=== PATIENT | female | born 1965 | race Caucasian/White ===

== ENCOUNTER 2020-02-11 09:44 | Emergency (ER) | payer OTHER ==
[2020-02-11] MEDS ORDERED: COLCHICINE 0.6 MG TAB PO ONE (10:05)
--- NOTE | 2020-02-11 10:33 | ED.PDOC ---
History of Present Illness - General Chief Complaint: General Stated Complaint: "lung pain" and pain in feet Time Seen by Provider: 02/11/20 09:47 Source: patient Exam Limitations: no limitations - History of Present Illness Initial Comments: The patient is a 54-year-old female presented to the emergency room secondary to a weeks worth of symptoms of sharp parasternal pain with movement, laying on her side and taking deep breaths along with the same duration of symptoms of pain to the medial proximal aspect of her left foot and pain to the distal plantar aspect of her right foot. All areas are exquisitely tender to very light palpation. There is no erythema. No skin changes. No increased warmth. This is a very convincing presentation for an acute gout flare. Patient denies any heavy alcohol use. No increased meat intake. No obvious increased dehydration. No diuretic use. No known metabolic disorders. This would be her first flare. No shortness of breath. No significant cough. No nausea vomiting or diarrhea. 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 I see no evidence of any real symptoms of coronavirus. Timing/Duration: 1 week Severity: severe Worsening Factors: movement Associated Symptoms: chest pain Allergies/Adverse Reactions: Allergies Acetaminophen [From Vicodin] Allergy (Verified 02/11/20 10:08) Hydrocodone [From Vicodin] Allergy (Verified 02/11/20 10:08) Home Medications: Ambulatory Orders Colchicine 0.6 mg PO Q8HR #3 tab 02/11/20 Cranberry (Vaccinium Macrocarp [Cranberry Concentrate] 500 mg PO DAILY 02/11/20 Pantoprazole Sodium 40 mg PO DAILY 02/11/20 predniSONE [Prednisone] 20 mg PO DAILY #4 tab 02/11/20 Review of Systems - Review of Systems Constitutional: States: no symptoms reported EENTM: States: no symptoms reported. Denies: nose congestion, throat pain Respiratory: Denies: cough, short of breath, wheezing Cardiology: States: chest pain Gastrointestinal/Abdominal: States: no symptoms reported Genitourinary: States: no symptoms reported Musculoskeletal: States: see HPI Skin: States: no symptoms reported Neurological: States: anxiety Endocrine: States: no symptoms reported All other Systems: No Change from Baseline Past Medical History (General) - Patient Medical History Hx Seizures: No Hx Stroke: No Hx Cardiac Disorders: No Hx Congestive Heart Failure: No Hx Hypertension: No Hx Thyroid Disease: No - Vaccination History Hx Influenza Vaccination: No Hx Pneumococcal Vaccination: No Family Medical History - Family History Mother Family History: No Known Physical Exam - Physical Exam General Appearance: Alert, Anxious, No apparent distress Eye Exam: bilateral normal Ears, Nose, Throat: hearing grossly normal, normal ENT inspection Neck: full range of motion, supple Respiratory: lungs clear, normal breath sounds, no respiratory distress, no accessory muscle use, other - See history of present illness Cardiovascular/Chest: normal peripheral pulses, regular rate, rhythm, no edema Peripheral Pulses: radial,right: 2+, radial,left: 2+ Gastrointestinal/Abdominal: non tender, soft Rectal Exam: deferred Back Exam: no CVA tenderness, no vertebral tenderness Extremity: normal range of motion, no pedal edema, no calf tenderness, normal capillary refill, other - Tenderness as described above 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 Symptoms are highly consistent. Chest x- ray was essentially normal. Urinalysis was normal given her history of recurrent urinary tract infections. The patient was given a dose of colchicine here. She is going to be written for a couple of days of oral colchicine as well as 4 days of oral prednisone. She needs to increase her fluid intake. She can take an cpss-lqi-[id number] anti-inflammatory such as Motrin or Aleve. She is to take measures to keep the areas warm to prevent crystal precipitation. She needs to avoid alcohol or high levels of red meat intake. She needs to avoid any diuretics. If the patient is not significantly improving over the next 3 to 4 days then a reevaluation with her primary care doctor for additional testing might be warranted. ER warnings are given. [email or web address] [id number] - Results/Orders Results/Orders: Laboratory Tests 02/11/20 10:10 Urine Color Yellow Urine Appearance Clear Urine pH 6.0 Ur Specific Cunningham 1.010 Urine Protein Negative Urine Glucose (UA) Negative Urine Ketones Negative Urine Blood Negative Urine Nitrite Negative Urine Bilirubin Negative Urine Urobilinogen 0.2 Ur Leukocyte Esterase Negative Urine RBC 0 Urine WBC 0-1 Ur Epithelial Cells 1-3 Urine Bacteria 0 Chest x-ray shows no obvious acute infiltrates. No pneumothorax. No obvious fractures. No cardiomegaly. EKG shows sinus tachycardia at 110 bpm. Very mild right axis deviation. Mild poor R wave progression. Mild left atrial dilation. No ST segment or T wave changes indicative of acute ischemia. Normal QT interval. Departure - Departure Clinical Impression: Gout attack Qualifiers: Gout site: multiple sites Gout etiology: unspecified cause Qualified Code(s): M10.9 - Gout, unspecified Disposition: Discharge to Home or Self Care Condition: Fair Departure Forms: ED Discharge - Pt. Copy, Patient Portal Self Enrollment Instructions: Gout (DC) Diet: other Activity: increase activity as tolerated Prescriptions: Colchicine 0.6 mg PO Q8HR #3 tab predniSONE [Prednisone] 20 mg PO DAILY #4 tab Home Medications: Ambulatory Orders Colchicine 0.6 mg PO Q8HR #3 tab 02/11/20 Cranberry (Vaccinium Macrocarp [Cranberry Concentrate] 500 mg PO DAILY 02/11/20 Pantoprazole Sodium 40 mg PO DAILY 02/11/20 predniSONE [Prednisone] 20 mg PO DAILY #4 tab 02/11/20 Additional Instructions: The patient is a 54-year-old female presented emergency room with what appears to be her first gout flare. Symptoms are highly consistent. Chest x- ray was essentially normal. Urinalysis was normal given her history of recurrent urinary tract infections. The patient was given a dose of colchicine here. She is going to be written for a couple of days of oral colchicine as well as 4 days of oral prednisone. She needs to increase her fluid intake. She can take an erqy-zhs-gflqrbl anti-inflammatory such as Motrin or Aleve. She is to take measures to keep the areas warm to prevent crystal precipitation. She needs to avoid alcohol or high levels of red meat intake. She needs to avoid any diuretics. If the patient is not significantly improving over the next 3 to 4 days then a reevaluation with her primary care doctor for additional testing might be warranted. ER warnings are given.
--- NOTE | 2020-02-11 10:35 | RAD ---
EXAM DESCRIPTION: Chest,1 View CLINICAL HISTORY: 54 years Female, ant chest wall pain COMPARISON: None available. TECHNIQUE: AP radiograph of the chest was obtained. FINDINGS: Trachea is midline.The cardiomediastinal silhouette is normal in size. The pulmonary vasculature is within normal limits.The lungs are clear with no acute consolidation.No evidence of pleural effusions. IMPRESSION: No acute cardiopulmonary process. Electronically signed by: Sierra Felder MD 02/11/2020 10:34 AM CDT
[2020-02-11 10:42] VITALS: BP 112/96
[2020-02-11 10:52] VITALS: TEMP 98.4; O2SAT 97
== END 2020-02-11 10:53 | disposition home or self-care (01) ==
LOC: ER 09:44
DX: R07.2 Precordial pain (principal); M10.9 Gout, unspecified; R00.0 Tachycardia, unspecified; Z88.5 Allergy status to narcotic agent; Z88.6 Allergy status to analgesic agent; Z79.899 Other long term (current) drug therapy

== ENCOUNTER 2020-02-15 13:17 | Emergency (ER) | payer OTHER ==
[2020-02-15] MEDS ORDERED: DEXAMETHASONE INJ 10 MG/ML VIAL IM ONE (13:35)
--- NOTE | 2020-02-15 13:43 | ED.PDOC ---
History of Present Illness - General Time Seen by Provider: 02/15/20 13:29 - History of Present Illness Initial Comments: 54 yo F PMH Gout presents to ED c/o bilateral non traumatic foot pain x 2 weeks. Pt. took last dose of prednisone today and finished colchicine. Denies fever chills nausea vomiting diarrhea chest paion sob diaphoresis. No change in diet bowel or bladder no drinking or smoking has no PMD symptoms are disturbing rest no other c/o today. Allergies/Adverse Reactions: Allergies Acetaminophen [From Vicodin] Allergy (Verified 02/11/20 10:08) Hydrocodone [From Vicodin] Allergy (Verified 02/11/20 10:08) Home Medications: Ambulatory Orders Colchicine 0.6 mg PO Q8HR #3 tab 02/11/20 Cranberry (Vaccinium Macrocarp [Cranberry Concentrate] 500 mg PO DAILY 02/11/20 Pantoprazole Sodium 40 mg PO DAILY 02/11/20 predniSONE [Prednisone] 20 mg PO DAILY #4 tab 02/11/20 Acetaminophen [Tylenol] 650 mg PO Q6H PRN #30 tab 02/15/20 Ibuprofen 600 mg PO Q6H PRN #20 tab 02/15/20 Prednisone 40 mg PO DAILY 5 Days #10 tab 02/15/20 Review of Systems - Review of Systems Constitutional: States: see HPI EENTM: States: see HPI Respiratory: States: see HPI Cardiology: States: see HPI Gastrointestinal/Abdominal: States: see HPI Genitourinary: States: see HPI Musculoskeletal: States: see HPI Skin: States: see HPI Neurological: States: see HPI Endocrine: States: see HPI Hematologic/Lymphatic: States: see HPI All other Systems: Reviewed and Negative Past Medical History (General) - Patient Medical History Hx Seizures: No Hx Stroke: No Hx of COPD: No Hx Cardiac Disorders: No Hx Congestive Heart Failure: No Hx Hypertension: No Hx Thyroid Disease: No - Vaccination History Hx Influenza Vaccination: No Hx Pneumococcal Vaccination: No Family Medical History - Family History Mother Family History: No Known Physical Exam - Physical Exam General Appearance: Other - uncomfortable Eyes, Ears, Nose, Throat: normal ENT inspection Neck: non-tender, full range of motion Cardiovascular/Respiratory: regular rate, rhythm Gastrointestinal/Abdominal: non-tender, no organomegaly Back: normal inspection Leg: non-tender Knee: non-tender Ankle: non-tender Foot: soft tissue tenderness, other - both feet tender Neuro/Tendon: normal motor functions Mental Status: alert, oriented x 3 Skin: warm/dry Progress - Progress Progress: 02/15/20 13:49 A/P-Foot Pain, Gout Attack-tylenol decadron d/c tylenol ibuprofen prednisone follow up pcp Departure - Departure Clinical Impression: Gout attack Qualifiers: Gout site: foot Gout etiology: unspecified cause Laterality: unspecified laterality Qualified Code(s): M10.9 - Gout, unspecified Foot pain Qualifiers: Laterality: bilateral Qualified Code(s): M79.671 - Pain in right foot; M79.672 - Pain in left foot Time of Disposition: 13:55 Disposition: Discharge to Home or Self Care Condition: Good Referrals: Bhupinder REDDY REF [Referring] - 1-2 Days Prescriptions: Acetaminophen [Tylenol] 650 mg PO Q6H PRN #30 tab PRN Reason: Pain Ibuprofen 600 mg PO Q6H PRN #20 tab PRN Reason: Pain Prednisone 40 mg PO DAILY 5 Days #10 tab Home Medications: Ambulatory Orders Colchicine 0.6 mg PO Q8HR #3 tab 02/11/20 Cranberry (Vaccinium Macrocarp [Cranberry Concentrate] 500 mg PO DAILY 02/11/20 Pantoprazole Sodium 40 mg PO DAILY 02/11/20 predniSONE [Prednisone] 20 mg PO DAILY #4 tab 02/11/20 Acetaminophen [Tylenol] 650 mg PO Q6H PRN #30 tab 02/15/20 Ibuprofen 600 mg PO Q6H PRN #20 tab 02/15/20 Prednisone 40 mg PO DAILY 5 Days #10 tab 02/15/20
[2020-02-15] MEDS ORDERED: ACETAMINOPHEN 500 MG TAB PO ONE (13:48)
[2020-02-15] MEDS ORDERED: KETOROLAC TROMETHAMINE INJ 30 MG/ML VIAL IM ONE (13:59)
[2020-02-15 14:37] VITALS: BP 151/97; TEMP 98.3; O2SAT 99
== END 2020-02-15 14:20 | disposition home or self-care (01) ==
LOC: ER 13:17
DX: M10.9 Gout, unspecified (principal); Z79.899 Other long term (current) drug therapy; Z88.5 Allergy status to narcotic agent; Z88.6 Allergy status to analgesic agent
CPT/HCPCS: J1100; J1885

== ENCOUNTER → 2020-09-03 | Outpatient (CLI) | payer BC, OTHER ==
--- NOTE | 2020-09-08 15:31 | MAM ---
EXAM DESCRIPTION: 3D Screening BILATERAL CLINICAL HISTORY: 54 years Female ANNUAL SCREENING . No complaints. Remote family history of breast cancer. Menarche age 14. Childbirth age 19. Menopause age 38. No HRT. Lifetime risk of developing breast cancer (Tyrer-Cuzick model)(%): 6.6. COMPARISON: Bilateral screening digital breast tomosynthesis at outside imaging facility June 2018.. No prior reports available. TECHNIQUE: Bilateral CC and MLO projection full-field images, digital tomosynthesis mammographic technique. Bilateral digital 2-D full-field MLO images. CAD available for 2-D images. FINDINGS: The breast parenchymal density pattern is: Heterogeneously dense breast tissue, which may obscure small masses. No skin thickening or nipple retraction. Axillary nodes. Solitary microcalcifications. Focal asymmetry 12:00 position middle third right breast stable. Vascular calcifications. No new focal, stellate mass or density, focal asymmetry , and no suspicious microcalcifications bilaterally. Stable mammograms compared to prior study. Taking into account, differences in mammographic technique. IMPRESSION: Benign exam. BIRAD CATEGORY: 2 BENIGN FINDINGS. RECOMMENDATIONS: FOLLOW UP: Routine digital bilateral mammographic screening, one year interval from August 2020. Written communication explaining the IMPRESSION and follow-up, will be mailed to the patient and referring health care provider. According to the [employer], yearly mammograms are recommended starting at age 40 and continuing as long as a woman is in good health. Any breast change noted on a breast self-exam should be reported promptly to the patient's healthcare provider. Breast MRI is recommended for women with an approximately 20-25% or greater lifetime risk of breast cancer, including women with a strong family history of breast or ovarian cancer and women who have been treated for Hodgkin's disease. A negative mammographic report should not delay tissue diagnosis in patients with significant clinical history or physical findings. Extremely dense breast tissue limits the sensitivity of digital mammography. Electronically signed by: Bishop Proctor MD 09/08/2020 3:30 PM CDT
== END ==
LOC: MAMMO 08:31
PROVIDERS: ATTEND Obstetrics & Gynecology Gynecology
DX: Z12.31 Encounter for screening mammogram for malignant neoplasm of breast (principal)